=== PATIENT | female | born 1980 | race Caucasian/White ===

== ENCOUNTER → 2017-07-02 11:13 | Outpatient (CLI) | payer OTHER, MEDICAID, SELFPAY ==
--- NOTE | 2017-07-02 | DI.US.S_ITS ---
PROCEDURE: US ABDOMEN COMPLETE INDICATIONS: HISTORY OF LEFT OVARIAN CANCER TECHNIQUE: Real-time scanning was performed of the abdominal and retroperitoneal organs, with image documentation. COMPARISON: None. FINDINGS: Liver: Liver is normal in size and homogeneous in echotexture. Gallbladder: The gallbladder is normal in size without gallbladder wall thickening, pericholecystic fluid, or cholelithiasis. Biliary ducts: Intrahepatic bile ducts are non-dilated. Extrahepatic bile duct caliber measures 3.6 mm. Normal is 6-7 mm or less in diameter, or 10 mm or less post-cholecystectomy. Pancreas: Visualized portions of the pancreas are sonographically normal. Spleen: Spleen is normal in size and homogeneous in echotexture. Kidneys: Kidneys are normal in size and echotexture. Right kidney measures 1.5 cm long; left kidney measures 11.1 cm long. No hydronephrosis or nephrolithiasis. No solid masses. Aorta: Visualized aorta is normal in caliber at less than 3 cm. Iliacs: Proximal common iliac arteries are normal in caliber at less than 2.5 cm. IVC: Intrahepatic inferior vena cava is patent. Miscellaneous: No free abdominal fluid. IMPRESSION: Unremarkable abdominal ultrasound. No ascites. No cholelithiasis. Dictated by: Hung Grissom M.D. on 07/02/2017 at 11:03 Approved by: Hung Grissom M.D. on 07/02/2017 at 11:04
--- NOTE | 2017-07-02 | DI.US.S_ITS ---
PROCEDURE: US PELVIC COMPLETE INDICATIONS: HISTORY OF LEFT OVARIAN CANCER TECHNIQUE: Real-time scanning was performed of the pelvic organs, with image documentation. Additional endovaginal scanning was necessary due to incomplete visualization of the adnexal and endometrial structures by transabdominal scanning. COMPARISON: [facility], , PELVIC COMPLETE, 11/07/2015, 10:11. FINDINGS: Transabdominal scanning: Limited scanning through the kidneys shows no hydronephrosis. No pathologic free abdominal or pelvic fluid. Endovaginal scanning: Uterus: Uterus is normal in size at 8.8 x 4.9 x 5.7 cm. endometrium is not thickened and is noted to measure approximately 8 mm in maximal combined thickness. Intrauterine contraceptive device partially obscures evaluation of the endometrium, which appears to be positioned within the endometrial cavity. No focal myometrial lesions are identified. Ovaries: The left ovary is surgically absent. No left adnexal abnormality is appreciated. The right ovary measures 2.1 x 2.3 x 4.3 cm which is slightly prominent in size. No cystic or solid right ovarian mass is evident. Blood flow is demonstrated to the right ovary, which demonstrates a normal arterial waveform. IMPRESSION: 1. The left ovary has been excised. 2. No right ovarian/adnexal abnormality is appreciated. 3. The uterus is unremarkable. 4. No ascites. Dictated by: Hung Grissom M.D. on 07/02/2017 at 11:07 Approved by: Hung Grissom M.D. on 07/02/2017 at 11:15
== END ==
PROVIDERS: Family Provider Family Medicine; PCP Family Medicine; Visit Provider Nurse Practitioner Family
DX: Z85.43 Personal history of malignant neoplasm of ovary (principal)
CPT/HCPCS: 76700; 76830; 76856

== ENCOUNTER 2024-12-22 14:34 | Outpatient (RCR) | payer OTHER, SELFPAY ==
--- NOTE | 2024-12-22 18:34 | ST.OPIE ---
Visit Care Team Role Provider Type Rhina Hernández DO Attending Provider Physician Primary Care Provider Referring Provider Specialty: [facility] Address: [address] [place] [address], [address], [place], [address] Email: [email or web address] Speech-Language Pathology Initial Evaluation PHONE OPERATOR Clinical Swallow Evaluation Start: 12/22/24 18:00 Freq: Status: Active Protocol: Document 12/22/24 18:01 SS (Rec: 12/22/24 18:34 SS [email or web address]) Clinical Swallow Evaluation Session Time Visit Start Time 14:35 Visit Stop Time 15:15 Total Visit Minutes 40 Visit Information Visit Number 1 Plan of Care Dates -12/22/24 Insurance [employer] Options Information Referral Referring Provider Dr. Rhina Hernández Reason for Referral Dysphagia Setting Assessment Location Outpatient Care Visit Type Note Type Initial evaluation Patient Information Identification Type Name History Geovanna Jones is a 44-year-old female, referred for a clinical swallow evaluation by Dr. Hernández due to concerns regarding pharyngoesophageal dysphagia. Pt had onset of swallowing difficulties about two years ago. An MBSS was completed on06/06/23, with findings of WNL oral and pharyngeal phases of the swallow. Esophageal phase was noted to be WFL. Please see full MBSS report. Pt has been followed by GI and has had multiple upper endoscopies and an esophageal manometry done. She is currently on Pantoprazole for GERD. However, she reports ongoing globus sensation, esophageal pressure ( pointing at her chest), and premature fullness. Pt also reported increased vocal hoarseness and baseline tight SCM muscles s/p cancer treatment. Pt was previously seen by ENT for rhinorrhea and PND. Thyroid nodule was recently discovered and is currently being monitored. Pertinent medical history includes ovarian and breast cancer (s/p mastectomy, radiology, and chemotherapy) and esophageal dysmotility with UES impairment. Subjective Pt arrived to the session on time. She provided her Observations case history and was engaged throughout. A clinical swallow evaluation was completed to assess patient?s current swallowing function and need for an instrumental swallow study or additional referrals. Reported by Patient/Caregiver Other Symptoms Food gets stuck,Other Comment Premature feeling of fullness, globus sensation, esophageal dysmotility with UES impermanent, vocal quality changes (increased hoarseness). Current Diet Regular (IDDSI 7) Baseline Feeding Independent in self-feeding Method Type of Patient EAT-10 and RSI Questionnaire (e.g., EAT-10, MDADI, etc. ) Results RSI administered following patient report of voice changes and throat clearing. The RSI is a questionnaire in which the patient rates nine different reflux related problems in a scale of 0 ?no problem? to 5 ? severe problem? in order to screen for laryngopharyngeal reflux (LPR). A score of >13/45 indicated the presence of LPR. The patent score a 8/45. Recommend she follow with PCP re: possible LPR. The Eating Assessment Tool (EAT-10) was administered. This tool is a symptom-specific outcome instrument for dysphagia. It consists of ten statements regarding the patient?s swallow and the patient scores each on a scale of 0-4, with 0 indicating no problem and 4 indicating a severe problem. A score of >3/40 could indicate a swallowing impairment that warrants further assessment/treatment. The patient scored a 7/40, indicating the need for further assessment. The IDDSI Framework Protocol: IDDSI.1 Objective Assessment Mental Status Alert,Responsive,Cooperative Oral Integrity WFL Dentition Within normal limits Lip Function Within normal limits Tongue Function Within normal limits Jaw Function Within normal limits Hard/Soft Palate Within normal limits Function Comment CRANIAL NERVE EXAM CN V (Trigeminal): intact b/l CN VII (Facial): intact b/l CN IX/X (Glossopharyngeal/Vagus): Unable to exclude CN X branch involvement 2/2 dysphonia CN XII (Hypoglossal): intact b/l LARYNGEAL FUNCTION EXAM Secretion Management: WNL Maximum Phonation Time (MPT): 22 seconds = Average S/Z Ratio: 21/23 = 0.91; WFL ~20-25 seconds for both phonemes equaling a ratio of 1. Voice Quality: Perceptually WNL, though mildly hoarse toward end of assessment Pitch Range: Perceptually WNL Food and Liquid Trials Position During Upright (90 degrees) Assessment Liquids Trialed Thin (IDDSI 0) Solid Trials Regular (IDDSI 7) Administration Type Cup single sip,Cup consecutive sips,Straw,Self-feeding Oral Impairment Within normal limits Oral Phase Comments Pt observed across trials of thin liquids (>3 oz water) via cup and straw and regular texture. Pt exhibited adequate bolus retrieval with no anterior loss Pt exhibited timely and organized bolus manipulation and complete oral clearance. This is consistent with MBSS results. Pharyngeal Within normal limits Impairment Pharyngeal Phase Pt did not demonstrate overt s/sx of aspiration with Comments intake. No globus sensation reported across trials, though pt did use liquid wash and took small bites independently. No changes to vocal quality following intake. This is consistent with MBSS report. [place] Swallow Yes Protocol Results The [place] Swallow Protocol is an evidence-based swallow screening protocol to determine aspiration risk. This tool has been validated across a number of different patient diagnoses and in a number of clinical settings. This is the only screening instrument that both identifies aspiration risk and, when passed, is able to recommend specific oral diets without the need for further instrumental dysphagia testing. Based upon research by Drs. Bud Chapman and Kristan Wray, this is a reliable and validated swallow screening protocol. Cognitive Screen: PASS Results with 3oz water test: PASS Results with cracker: PASS The IDDSI Framework Protocol: IDDSI.1 Findings Swallowing Function Other dysphagia Swallowing Function Esophageal dysphagia Comments Comment Pt presents with WNL oral and pharyngeal phases of swallowing. She presents with symptoms consistent with esophageal dysphagia (premature feeling of fullness, globus sensation, hoarseness, and PND). Pt with known history of esophageal dysmotility and is taking Pantoprazole to manage GERD. Given that MBSS was completed about a year ago with no change to pt symptoms since, this PHONE OPERATOR?s recommendation is consistent with prior recommendation of no further speech therapy is warranted at this time. Recommendations as follows: 1. Follow-up with GI for esophageal dysmotility and GERD management. 2. Continue strategies to manage GERD such as alternating liquids and solids, small bites/sips, sitting upright during and after meals, and eating smaller meals throughout the day. 3. Follow up with ENT for videostroboscopy if voice concerns persist for direct visualization. Return to speech therapy if recommended by ENT. 4. Continue monitoring of thyroid nodule as it may be pressing in area of larynx and leading to globous sensation. 5. Recommend repeat MBSS if pt follows GI and ENT recommendations without improvement in symptoms and continued globus sensation. PHONE OPERATOR provided education re: normal swallow anatomy and physiology and the results of the MBSS. Utilized a visual diagram to improve pt?s understanding. Pt expressed understanding re: results. Pt educated on recommendations above and expressed understanding. Impact on Safety and No limitations Functioning Recommendations Instrumental No Assessment Swallowing Treatment No Recommended Solids Regular (IDDSI 7) Recommended Liquids Thin (IDDSI 0) Education Patient/Caregiver Described results of evaluation,Patient expressed Education understanding of evaluation
--- NOTE | 2025-01-07 12:51 | ST.OPDS ---
Visit Care Team Role Provider Type Rhina Hernández DO Attending Provider Physician Primary Care Provider Referring Provider Address: [address] [place] [address], [address], [place], [address] Evaluation was completed on 12/22/24. Per evaluation pt presents with WNL oral and pharyngeal phases of swallowing. She presents with symptoms consistent with esophageal dysphagia (premature feeling of fullness, globus sensation, hoarseness, and PND). GI referral recommended. Please see full report. Pt aware of assessment results and recommendations. No further MANAGER SURGERY services are warranted at this time. Account discharged.
== END 2025-01-12 15:04 | disposition home or self-care (01) ==
LOC: SP 14:34
PROVIDERS: PCP Family Medicine; Referring Provider Family Medicine; Visit Provider Family Medicine
DX: R09.A2 Foreign body sensation, throat (principal)
CPT/HCPCS: 92610